=== PATIENT | female | born 1945 | race Caucasian/White ===

== ENCOUNTER 2021-07-03 09:48 | Outpatient (CLI) | payer MEDICARE, OTHER, SELFPAY ==
--- NOTE | 2021-07-03 09:52 | MM_ITS ---
WS: [id number] Exam: [id number] Date/Time of Exam: 07/03/2021 9:55 AM Reason For Exam: SCREENING VIEWS: MLO and CC views both breasts. Comparison made with prior exam of 10/03/2016, 10/11/2017 and 10/24/2018. Findings: There was no sign of mass, architectural distortion or suspicious calcification in either breast. Fa tty MM/[id number] Impression: BI-RADS: 2-Benign FOLLOW-UP: 1 Year Follow-up This mammogram was also analyzed by the Computer Aided Detection System [employer].
== END 2021-07-03 09:49 | disposition home or self-care (01) ==
PROVIDERS: PCP Family Medicine; Visit Provider Family Medicine
DX: Z12.31 Encounter for screening mammogram for malignant neoplasm of breast (principal)
CPT/HCPCS: 77067

== ENCOUNTER → 2022-01-30 08:18 | Outpatient (BNVA) | payer SELFPAY | PROVIDERS: PCP Family Medicine; Referring Provider Family Medicine; Visit Provider Dermatology | DX: Z01.89 Encounter for other specified special examinations (principal); Z71.9 Counseling, unspecified ==

== ENCOUNTER 2022-07-06 12:51 | Outpatient (CLI) | payer MEDICARE, OTHER, SELFPAY ==
--- NOTE | 2022-07-06 13:38 | MM_ITS ---
WS: [id number] BILATERAL SCREENING DIGITAL TOMOSYNTHESIS MAMMOGRAM WITH CAD HISTORY: SCREENING COMPARISON: 07/03/2021, 10/24/2018 Bilateral CC and MLO views with tomosynthesis and synthetic mammography submitted. Computer aided det ection analyzed. Breast composition: There are scattered areas of fibroglandular density. No suspicious masses, microc alcifications or architectural distortion. MM/[id number] IMPRESSION: BI-RADS: 1-Negative FOLLOW UP: 1 Year Follow-up
== END 2022-07-06 12:52 | disposition home or self-care (01) ==
LOC: RAD 12:52
PROVIDERS: PCP Family Medicine; Visit Provider Family Medicine
DX: Z12.31 Encounter for screening mammogram for malignant neoplasm of breast (principal)
CPT/HCPCS: 77063; 77067

== ENCOUNTER → 2023-01-29 08:11 | Outpatient (BNVA) | payer SELFPAY | PROVIDERS: PCP Family Medicine; Visit Provider Dermatology | DX: Z01.89 Encounter for other specified special examinations (principal) ==

== ENCOUNTER → 2024-02-03 10:51 | Outpatient (BNVA) | payer MEDICARE, OTHER, SELFPAY | PROVIDERS: PCP Family Medicine; Visit Provider Family Medicine | DX: R07.89 Other chest pain (principal); K21.9 Gastro-esophageal reflux disease without esophagitis | CPT/HCPCS: 93005 ==

== ENCOUNTER → 2024-09-16 11:28 | Outpatient (BNVA) | payer MEDICARE, OTHER, SELFPAY | PROVIDERS: PCP Family Medicine; Visit Provider Family Medicine | DX: Z01.818 Encounter for other preprocedural examination (principal); I73.9 Peripheral vascular disease, unspecified; I10 Essential (primary) hypertension | CPT/HCPCS: 81000 ==

== ENCOUNTER 2024-09-24 10:02 | Outpatient (CLI) | payer MEDICARE, OTHER, SELFPAY ==
--- NOTE | 2024-09-24 10:30 | USR_ITS ---
PROCEDURE INFORMATION: Exam: US Bilateral Noninvasive Physiologic Study of the Lower Extremity Arteries, Limited Exam date and time: 09/24/2024 11:15 AM Age: 79 years old Clinical indication: Pain; Leg, lower; Bilateral; Additional info: Periph vasc disease/ intermittant pain right medial leg, if available, patient prefers exam on a Saturday TECHNIQUE: Imaging protocol: Bilateral Limited bilateral noninvasive physiologic studies of lower extremity arteries. Waveforms were obtained and evaluated. Images were documented and archived. Exam is limited. COMPARISON: No relevant prior studies available. FINDINGS: Right Ankle-Brachial Index: 1.0. Left Ankle-Brachial Index: 1.0. US/CV ankle brachial index [id number] IMPRESSION: No evidence of stenosis or occlusion in the lower extremity.
== END 2024-09-24 10:03 | disposition home or self-care (01) ==
PROVIDERS: PCP Family Medicine; Visit Provider Family Medicine
DX: Z01.818 Encounter for other preprocedural examination (principal); I73.9 Peripheral vascular disease, unspecified
CPT/HCPCS: 93922

== ENCOUNTER → 2025-01-28 08:48 | Outpatient (BNVA) | payer SELFPAY | PROVIDERS: PCP Family Medicine; Visit Provider Dermatology | DX: Z13.9 Encounter for screening, unspecified (principal) | CPT/HCPCS: 80053; 80061; 83036; 85025 ==

== ENCOUNTER → 2025-06-15 08:57 | Outpatient (BNVA) | payer MEDICARE, OTHER, SELFPAY | PROVIDERS: PCP Family Medicine; Visit Provider Family Medicine | DX: I10 Essential (primary) hypertension (principal) | CPT/HCPCS: 80061 ==